=== PATIENT | male | born 1960 | race Caucasian/White ===

== ENCOUNTER 2023-06-24 13:58 | Emergency (ER) | payer SELFPAY ==
[2023-06-24 14:16] VITALS: RESP 18; TEMP 98; BMI 32.3
[2023-06-24 17:30] LABS: EOS % 0.5 % (0-4.5); HEMATOCRIT 34.2 % (35.4-49); HEMOGLOBIN 11.3 GM/dL (11.7-16.9); LYMPH % 49.3 % (8-40); MEAN CELL VOLUME 90.8 fl (80-96); MONO % 4.5 % (3.8-10.2); NEUT % 42.7 % (42.8-82.8); PLATELET COUNT 291 10^3/uL (134-434); RBC 3.77 M/mm3 (4.00-5.60); RDW 27.7 % (11.9-15.9); WHITE BLOOD COUNT 12.2 K/mm3 (4.0-10.0)
[2023-06-24 17:31] LABS: INR 1.58 (0.83-1.09); PROTHROMBIN TIME (PATIENT) 18.3 SEC (9.7-13.0)
[2023-06-24 17:33] LABS: ACTIVATED PTT 37.1 SECONDS (25.2-36.5)
[2023-06-24 17:57] LABS: ANISOCYTOSIS 3+; MACROCYTOSIS 0; TARGET CELLS 2+; TEAR DROP CELLS 1+
[2023-06-24 18:18] LABS: LACTIC ACID 5.1 mmol/L (0.4-2.0)
[2023-06-24] MEDS ORDERED: CEFTRIAXONE 1 GM in DEXTROSE 5%-WATER - 50 ML IVPB ONE (18:20)
[2023-06-24] MEDS ORDERED: CEFTRIAXONE 1 GM/50 ML BAG ONE ×2 (18:41→19:54)
[2023-06-24 18:48] LABS: CHLORIDE 93 mmol/L (98-107); POTASSIUM 4.8 mmol/L (3.5-5.1); SODIUM 132 mmol/L (136-145)
[2023-06-24 18:51] LABS: CALCIUM 9.8 mg/dL (8.5-10.1)
[2023-06-24 18:52] LABS: ANION GAP 17 mmol/L (4-13); BLOOD UREA NITROGEN 69.7 mg/dL (7-18); CO2 22 mmol/L (21-32); GLUCOSE,RANDOM 128 mg/dL (74-106)
[2023-06-24 18:55] LABS: CREATININE 4.5 mg/dL (0.55-1.3); SGOT/AST 652 U/L (15-37); SGPT/ALT 100 U/L (13-61)
[2023-06-24 18:58] LABS: ALK PHOS 568 U/L (45-117)
[2023-06-24 19:37] LABS: TOT PROT 6.3 g/dl (6.4-8.2)
[2023-06-24 20:30] VITALS: BP 139/47; PULSE 85
[2023-06-24] MEDS ORDERED: ONDANSETRON 4 MG/2 ML VIAL ONE (22:43)
[2023-06-24] MEDS ORDERED: ONDANSETRON 4 MG/2 ML VIAL IVPUSH ONE (22:49)
== END 2023-06-24 23:51 | disposition short-term general hospital (02) ==
LOC: JER 13:58
PROC: 3E03329 Introduction of Other Anti-infective into Peripheral Vein, Percutaneous Approach (ICD-10-PCS; principal; 2023-06-24)
PROC: 3E033GC Introduction of Other Therapeutic Substance into Peripheral Vein, Percutaneous Approach (ICD-10-PCS; 2023-06-24)
DX: R10.32 Left lower quadrant pain (principal); N50.812 Left testicular pain; R11.10 Vomiting, unspecified; R17 Unspecified jaundice; C64.9 Malignant neoplasm of unspecified kidney, except renal pelvis; K72.90 Hepatic failure, unspecified without coma; N17.9 Acute kidney failure, unspecified; R91.8 Other nonspecific abnormal finding of lung field; J90 Pleural effusion, not elsewhere classified; K74.60 Unspecified cirrhosis of liver; L29.9 Pruritus, unspecified; R14.0 Abdominal distension (gaseous); R16.0 Hepatomegaly, not elsewhere classified; Z20.822 Contact with and (suspected) exposure to COVID-19
CPT/HCPCS: 0241U-QW; 36415; 71045-TC-FY; 74176-TC; 76705-TC; 80053; 80307; 82140; 83605; 84484; 85025; 85610; 85730; 93005; 93010; 99285-25